=== PATIENT | female | born 1945 | race Caucasian/White ===

== ENCOUNTER 2016-10-27 19:43 | Inpatient (IN) | payer MEDICARE, MEDICAID ==
[~2016-10-27] VITALS: Ht 162.6 cm; Wt 46.8 kg
[2016-10-27] MEDS ORDERED: SODIUM CHLORIDE 0.9%, 500ML IVBOLUS ONE (20:00)
[2016-10-27] MEDS ORDERED: ONDANSETRON 2MG/ML, 2ML IVPush ONE (20:00)
[2016-10-27] MEDS ORDERED: morphine SULFATE 10 MG/ML, 1ML IVPush ONE (20:30)
[2016-10-27 20:38] LABS: HEMOGLOBIN 11.9 g/dL (11.7-16.4)
[2016-10-27] MEDS ORDERED: MORPHINE SULFATE 4 MG/ML, 1ML ONE (20:38)
[2016-10-27] MEDS ORDERED: ONDANSETRON 2MG/ML, 2ML ONE (20:38)
[2016-10-27 20:50] LABS: ASPARTATE AMINO TRANSFERASE 10 U/L (15-37); BLOOD UREA NITROGEN 86 mg/dL (7-18)
[2016-10-27] MEDS ORDERED: SODIUM CHLORIDE FLUSH 10ML SYR IVF ONE (21:00)
[2016-10-27] MEDS ORDERED: PIPERACILLIN/TAZO/PMX 3.375GM 50 ML ONE (22:29)
[2016-10-27] MEDS ORDERED: SODIUM CHLORIDE 0.9% 1,000 ML IV ONE (22:30)
[2016-10-27] MEDS ORDERED: METRONIDAZOLE PMX 500MG/100ML 100 ML IV ONE (22:30)
[2016-10-27] MEDS ORDERED: PIPERACILLIN/TAZO/PMX 3.375GM 50 ML IV ONE (22:30)
[2016-10-27] MEDS ORDERED: PIPERACILLIN/TAZO/PMX 3.375GM 50 ML IV SCH (23:00)
[2016-10-27] MEDS ORDERED: ACETAMINOPHEN 325 MG TABLET PO PRN (23:00)
[2016-10-28] MEDS: SODIUM CHLORIDE 0.9% 1,000 ML IV SCH ×4 (00:25→17:31)
[2016-10-28] MEDS: METRONIDAZOLE PMX 500MG/100ML 100 ML IV SCH ×2 (00:25→08:00)
[2016-10-28 00:37] VITALS: BP 143/71
[2016-10-28] MEDS: HEPARIN 5,000 UNITS/ML, 1ML SQ SCH ×3 (01:25→17:30)
[2016-10-28] MEDS: HYDROcodone/APAP 5/325 TABLET PO PRN ×2 (01:40→19:53)
[2016-10-28 02:13] VITALS: BP 123/57
[2016-10-28 05:52] LABS: HEMOGLOBIN 10.5 g/dL (11.7-16.4)
[2016-10-28 06:04] LABS: BLOOD UREA NITROGEN 83 mg/dL (7-18)
[2016-10-28 06:09] LABS: ASPARTATE AMINO TRANSFERASE 7 U/L (15-37)
[2016-10-28 07:58] VITALS: BP 119/61
[2016-10-28] MEDS ORDERED: DEXTROSE 50%, 50ML SYRINGE IVPush ONE (08:30)
[2016-10-28] MEDS ORDERED: PHARMACY MAY ADJ FOR RENAL FX MC PRN (08:30)
[2016-10-28] MEDS ORDERED: SODIUM CHLORIDE 0.9% 1,000 ML IV SCH ×2 (08:30)
[2016-10-28] MEDS: SODIUM BICARBONATE 8.4% 150 MEQ in DEXTROSE 5% 1,000 ML IV SCH ×2 (09:12→21:43)
[2016-10-28] MEDS: INSULIN REGULAR 100 UNITS/ML, 3ML VIAL IVPush SCH ×2 (09:13→11:00)
[2016-10-28] MEDS ORDERED: LIDOCAINE 1%, 20ML ONE ×2 (10:52→15:56)
[2016-10-28] MEDS ORDERED: MIDAZOLAM 1 MG/ML, 5ML ONE (11:16)
[2016-10-28] MEDS ORDERED: FENTANYL PF 100 MCG/2ML ONE ×2 (11:16→15:57)
[2016-10-28] MEDS ORDERED: NALOXONE 1 MG/ML, 2ML ONE (11:17)
[2016-10-28 11:50] LABS: BLOOD UREA NITROGEN 86 mg/dL (7-18)
[2016-10-28 12:45] VITALS: BP 104/48
[2016-10-28 12:48] LABS: CYTOLOGY BODY FLUID RECD INTO PATHOLOGY; CYTOLOGY BODY FLUID SOURCE OTHER - SEE COMMENT
[2016-10-28] MEDS: PIPERACILLIN/TAZO/PMX 2.25GM 50 ML IV SCH ×2 (15:36→23:16)
[2016-10-28 17:38] LABS: BLOOD UREA NITROGEN 74 mg/dL (7-18)
[2016-10-28 18:26] LABS: POTASSIUM,URINE RANDOM 9 mmol/L
[2016-10-28 19:43] VITALS: BP 127/54
[2016-10-29] MEDS: HYDROcodone/APAP 5/325 TABLET PO PRN ×4 (00:38→19:57)
[2016-10-29 01:16] VITALS: BP 130/60
[2016-10-29] MEDS: SODIUM CHLORIDE 0.9% 1,000 ML IV SCH ×2 (02:29→08:17)
[2016-10-29] MEDS: HEPARIN 5,000 UNITS/ML, 1ML SQ SCH ×2 (02:56→07:56)
[2016-10-29 07:03] VITALS: BP 137/67
[2016-10-29] MEDS: SODIUM BICARBONATE 8.4% 150 MEQ in DEXTROSE 5% 1,000 ML IV SCH (08:18)
[2016-10-29] MEDS: PIPERACILLIN/TAZO/PMX 2.25GM 50 ML IV SCH ×3 (08:18→21:04)
[2016-10-29] MEDS ORDERED: SODIUM CHLORIDE 0.9% 1,000 ML IV ONE (09:30)
[2016-10-29 10:22] LABS: HEMOGLOBIN 9.3 g/dL (11.7-16.4)
[2016-10-29 10:29] LABS: BLOOD UREA NITROGEN 20 mg/dL (7-18)
[2016-10-29 10:33] LABS: ASPARTATE AMINO TRANSFERASE 11 U/L (15-37)
[2016-10-29 12:10] LABS: PTH INTACT INTERPRETATION ** Comment **
[2016-10-29 12:26] VITALS: BP 139/60
[2016-10-29 12:28] LABS: BLOOD UREA NITROGEN 18 mg/dL (7-18)
[2016-10-29 12:37] LABS: PARATHYROID HORMONE INTACT 90.1 pg/mL (14-72)
[2016-10-29] MEDS ORDERED: ERGOCALCIFEROL 50,000 UNIT CAPSULE PO SCH (15:00)
[2016-10-29] MEDS: SODIUM CHLORIDE 0.45% 1,000 ML IV SCH (17:25)
[2016-10-29 19:52] VITALS: BP 151/73
[2016-10-30] MEDS: HYDROcodone/APAP 5/325 TABLET PO PRN ×5 (02:10→22:34)
[2016-10-30 02:13] VITALS: BP 155/75
[2016-10-30] MEDS: PIPERACILLIN/TAZO/PMX 2.25GM 50 ML IV SCH ×2 (03:24→09:26)
[2016-10-30] MEDS: SODIUM CHLORIDE 0.45% 1,000 ML IV SCH ×2 (04:29→18:37)
[2016-10-30 06:16] LABS: HEMOGLOBIN 8.8 g/dL (11.7-16.4)
[2016-10-30 06:27] LABS: ASPARTATE AMINO TRANSFERASE 10 U/L (15-37); BLOOD UREA NITROGEN 10 mg/dL (7-18)
[2016-10-30 07:07] VITALS: BP 155/71
[2016-10-30] MEDS ORDERED: POTASSIUM PHOSPHATE 44 MEQ in SODIUM CHLORIDE 0.9% 500 ML IV ONE (11:30)
[2016-10-30] MEDS ORDERED: POTASSIUM PHOS 4.4 MEQ/ML IV SCH (11:30)
[2016-10-30] MEDS ORDERED: MAGNESIUM SULFATE PMX 4GM/100M 100 ML IV ONE (11:30)
[2016-10-30] MEDS: CEFTRIAXONE PMX 1GM/50ML 50 ML IV SCH (11:35)
[2016-10-30 13:19] VITALS: BP 133/65
[2016-10-30] MEDS ORDERED: BISACODYL 10 MG SUPP PR PRN (18:00)
[2016-10-30 19:28] VITALS: BP 115/66
[2016-10-30] MEDS: SENNA/DOCUSATE TABLET PO SCH (20:37)
[2016-10-31] MEDS: HYDROcodone/APAP 5/325 TABLET PO PRN ×5 (02:24→20:07)
[2016-10-31 02:39] VITALS: BP 147/77
[2016-10-31] MEDS: SODIUM CHLORIDE 0.45% 1,000 ML IV SCH ×2 (05:20→15:58)
[2016-10-31 05:42] LABS: HEMOGLOBIN 10.5 g/dL (11.7-16.4)
[2016-10-31 06:08] LABS: ASPARTATE AMINO TRANSFERASE 15 U/L (15-37); BLOOD UREA NITROGEN 11 mg/dL (7-18)
[2016-10-31 07:34] VITALS: BP 150/81
[2016-10-31] MEDS: SENNA/DOCUSATE TABLET PO SCH ×2 (07:47→20:07)
[2016-10-31] MEDS: CEFTRIAXONE PMX 1GM/50ML 50 ML IV SCH (11:52)
[2016-10-31 14:10] VITALS: BP 145/73
[2016-11-01] MEDS: HYDROcodone/APAP 5/325 TABLET PO PRN ×6 (00:39→21:43)
[2016-11-01] MEDS: SODIUM CHLORIDE 0.45% 1,000 ML IV SCH ×3 (00:39→23:19)
[2016-11-01 01:16] VITALS: BP 163/79
[2016-11-01 04:46] LABS: HEMOGLOBIN 11.4 g/dL (11.7-16.4)
[2016-11-01 04:55] LABS: BLOOD UREA NITROGEN 15 mg/dL (7-18)
[2016-11-01 04:58] LABS: ASPARTATE AMINO TRANSFERASE 40 U/L (15-37)
[2016-11-01] MEDS: SENNA/DOCUSATE TABLET PO SCH ×2 (09:02→21:00)
[2016-11-01 09:08] VITALS: BP 162/86
[2016-11-01] MEDS: CEFTRIAXONE PMX 1GM/50ML 50 ML IV SCH (11:52)
[2016-11-01 16:37] VITALS: BP 141/71
[2016-11-01 19:33] VITALS: BP 161/76
[2016-11-02] MEDS: HYDROcodone/APAP 5/325 TABLET PO PRN ×5 (02:23→20:09)
[2016-11-02 03:07] VITALS: BP 157/85
[2016-11-02 05:40] LABS: HEMOGLOBIN 11.4 g/dL (11.7-16.4)
[2016-11-02 05:54] LABS: BLOOD UREA NITROGEN 17 mg/dL (7-18)
[2016-11-02 05:58] LABS: ASPARTATE AMINO TRANSFERASE 55 U/L (15-37)
[2016-11-02 07:10] VITALS: BP 125/75
[2016-11-02] MEDS: SENNA/DOCUSATE TABLET PO SCH ×2 (08:54→20:09)
[2016-11-02] MEDS: SODIUM CHLORIDE 0.45% 1,000 ML IV SCH ×2 (09:08→15:00)
[2016-11-02] MEDS: CEFTRIAXONE PMX 1GM/50ML 50 ML IV SCH (11:34)
[2016-11-02] MEDS ORDERED: LIDOCAINE 1%, 20ML ONE (13:04)
[2016-11-02] MEDS ORDERED: MIDAZOLAM 1 MG/ML, 5ML ONE (13:09)
[2016-11-02] MEDS ORDERED: FENTANYL PF 100 MCG/2ML ONE (13:10)
[2016-11-02 14:35] VITALS: BP 123/68
[2016-11-02 19:52] VITALS: BP 172/91
[2016-11-03] MEDS: SODIUM CHLORIDE 0.45% 1,000 ML IV SCH ×3 (00:46→18:06)
[2016-11-03] MEDS: HYDROcodone/APAP 5/325 TABLET PO PRN ×6 (00:46→22:04)
[2016-11-03 00:54] VITALS: BP 118/68
[2016-11-03 04:15] VITALS: BP 134/68
[2016-11-03 06:10] LABS: HEMOGLOBIN 10.1 g/dL (11.7-16.4)
[2016-11-03 06:40] LABS: ASPARTATE AMINO TRANSFERASE 40 U/L (15-37); BLOOD UREA NITROGEN 17 mg/dL (7-18)
[2016-11-03 06:56] VITALS: BP 117/70
[2016-11-03] MEDS: SENNA/DOCUSATE TABLET PO SCH ×2 (09:34→20:49)
[2016-11-03] MEDS: CEFTRIAXONE PMX 1GM/50ML 50 ML IV SCH (11:38)
[2016-11-03 14:11] VITALS: BP 141/77
[2016-11-03 19:14] VITALS: BP 143/72
[2016-11-04 01:37] VITALS: BP 130/72
[2016-11-04] MEDS: HYDROcodone/APAP 5/325 TABLET PO PRN ×5 (02:11→22:16)
[2016-11-04 05:01] LABS: HEMOGLOBIN 10.4 g/dL (11.7-16.4)
[2016-11-04 05:15] LABS: BLOOD UREA NITROGEN 17 mg/dL (7-18)
[2016-11-04 05:18] LABS: ASPARTATE AMINO TRANSFERASE 23 U/L (15-37)
[2016-11-04 07:30] VITALS: BP 113/60
[2016-11-04] MEDS: SENNA/DOCUSATE TABLET PO SCH ×2 (09:38→21:00)
[2016-11-04] MEDS: CEFTRIAXONE PMX 1GM/50ML 50 ML IV SCH (11:04)
[2016-11-04 13:05] VITALS: BP 142/71
[2016-11-04 20:04] VITALS: BP 152/76
[2016-11-04] MEDS: SODIUM CHLORIDE 0.45% 1,000 ML IV SCH (21:25)
[2016-11-04] MEDS ORDERED: OMNIPAQUE 350 MG/ML, 75ML BOTTLE ONE (23:14)
[2016-11-05 02:01] VITALS: BP 139/79
[2016-11-05] MEDS: HYDROcodone/APAP 5/325 TABLET PO PRN ×3 (02:25→10:25)
[2016-11-05 05:25] LABS: HEMOGLOBIN 11.1 g/dL (11.7-16.4)
[2016-11-05 05:37] LABS: ASPARTATE AMINO TRANSFERASE 23 U/L (15-37); BLOOD UREA NITROGEN 24 mg/dL (7-18)
[2016-11-05 07:24] VITALS: BP 117/65
[2016-11-05] MEDS: SODIUM CHLORIDE 0.45% 1,000 ML IV SCH (07:30)
[2016-11-05] MEDS ORDERED: ACET325T14 PO (10:18)
[2016-11-05] MEDS ORDERED: ERGO500017 PO (10:18)
[2016-11-05] MEDS: SENNA/DOCUSATE TABLET PO SCH (10:25)
[2016-11-05] MEDS: CEFTRIAXONE PMX 1GM/50ML 50 ML IV SCH (11:14)
[2016-11-05 12:20] VITALS: BP 139/76
[2016-11-28] MEDS ORDERED: SODIUM CHLORIDE 0.9% 1,000 ML IV ONE (09:30)
== END 2016-11-05 13:45 | disposition home health service (06) | DRG 371 ==
LOC: ED 22:00 → EDIP 22:16 → 3NE 23:20 → 4EST 10-31 20:04 → 4NOR 11-02 14:34 → DCLOUNGE 11-05 13:45
PROVIDERS: ADMIT Internal Medicine; ATTEND Internal Medicine
PROC: 0T9B70Z Drainage of Bladder with Drainage Device, Via Natural or Artificial Opening (ICD-10-PCS; 2016-10-27)
PROC: BT111ZZ Fluoroscopy of Right Kidney using Low Osmolar Contrast (ICD-10-PCS; 2016-10-28)
PROC: 0T9430Z Drainage of Left Kidney Pelvis with Drainage Device, Percutaneous Approach (ICD-10-PCS; 2016-10-28)
PROC: 0W9G3ZZ Drainage of Peritoneal Cavity, Percutaneous Approach (ICD-10-PCS; 2016-10-28)
PROC: 0T9330Z Drainage of Right Kidney Pelvis with Drainage Device, Percutaneous Approach (ICD-10-PCS; 2016-10-28)
PROC: 0T784DZ Dilation of Bilateral Ureters with Intraluminal Device, Percutaneous Endoscopic Approach (ICD-10-PCS; principal; 2016-11-02)
DX: K65.1 Peritoneal abscess (principal); E43 Unspecified severe protein-calorie malnutrition; N17.0 Acute kidney failure with tubular necrosis; N13.39 Other hydronephrosis; E87.1 Hypo-osmolality and hyponatremia; J90 Pleural effusion, not elsewhere classified; E87.2 Acidosis; Z68.1 Body mass index [BMI] 19.9 or less, adult; N13.8 Other obstructive and reflux uropathy; K80.20 Calculus of gallbladder without cholecystitis without obstruction; D25.9 Leiomyoma of uterus, unspecified; G89.29 Other chronic pain; D64.9 Anemia, unspecified; E83.51 Hypocalcemia; M41.9 Scoliosis, unspecified; E83.39 Other disorders of phosphorus metabolism; E87.5 Hyperkalemia; E83.42 Hypomagnesemia; K59.00 Constipation, unspecified; M25.559 Pain in unspecified hip; R19.00 Intra-abdominal and pelvic swelling, mass and lump, unspecified site; E83.41 Hypermagnesemia; H54.7 Unspecified visual loss; E86.0 Dehydration; Z80.3 Family history of malignant neoplasm of breast; Z80.0 Family history of malignant neoplasm of digestive organs; Z93.6 Other artificial openings of urinary tract status
CPT/HCPCS: 36415; 49405; 50432; 50693; 71010; 71260; 74176; 75989; 76700; 76856; 76942; 80048; 80053; 81001; 81050; 82247; 82248; 82306; 82310; 82436; 82570; 82728; 83540; 83550; 83605; 83690; 83735; 83970; 84100; 84132; 84133; 84145; 84300; 84311; 84550; 85025; 85610; 87040; 87070; 87075; 87086; 87205; 88112; 88305; 93005; 96361; 96374; 99156; 99157; C1894; J0696; J1644; J1815; J2250; J2405; J2543; J3010; J3490; J7070; Q9967; C1729; C1751; C1769; C2625; J2270; J2310; J3475; J7030; J7040

== ENCOUNTER 2017-01-04 16:55 | Inpatient (IN) | payer MEDICARE, MEDICAID ==
[~2017-01-04] VITALS: Ht 162.6 cm; Wt 47.6 kg
[~2017-01-04 16:55] MED LIST: ACET325T14 PO; ERGO500017 PO
[2017-01-04] MEDS ORDERED: SODIUM CHLORIDE FLUSH 10ML SYR IVF ONE (17:30)
[2017-01-04] MEDS ORDERED: ONDANSETRON 2MG/ML, 2ML IVPush ONE (17:30)
[2017-01-04] MEDS ORDERED: SODIUM CHLORIDE 0.9% 1,000ML IVBOLUS ONE (17:30)
[2017-01-04 18:02] LABS: BLOOD UREA NITROGEN 72 mg/dL (7-18)
[2017-01-04] MEDS ORDERED: MORPHINE SULFATE 4 MG/ML, 1ML ONE ×2 (18:07→19:08)
[2017-01-04] MEDS ORDERED: ONDANSETRON 2MG/ML, 2ML ONE (18:08)
[2017-01-04] MEDS: MORPHINE SULFATE 4 MG/ML, 1ML IVPush PRN ×2 (18:12→19:15)
[2017-01-04] MEDS: SODIUM CHLORIDE 0.9% 1,000 ML IV ONE ×2 (18:57→19:15)
[2017-01-04] MEDS ORDERED: CEFTRIAXONE 1,000 MG in SODIUM CHLORIDE 0.9% 50 ML IVPB ONE (19:00)
[2017-01-04] MEDS ORDERED: SODIUM CHLORIDE 0.9%, 500ML IVBOLUS ONE (19:00)
[2017-01-04] MEDS ORDERED: CEFTRIAXONE PMX 1GM/50ML 50 ML ONE (19:09)
[2017-01-04] MEDS ORDERED: DOCUSATE 100 MG CAPSULE PO PRN (23:00)
[2017-01-04] MEDS ORDERED: HEPARIN 5,000 UNITS/ML, 1ML SQ SCH (23:00)
[2017-01-04] MEDS ORDERED: ACETAMINOPHEN 325 MG TABLET PO PRN (23:00)
[2017-01-04] MEDS ORDERED: TEMAZEPAM 15 MG CAPSULE PO PRN (23:00)
[2017-01-04 23:48] VITALS: BP 132/77
[2017-01-04] MEDS: OXYcodone/APAP 5/325MG TABLET PO PRN (23:53)
[2017-01-04] MEDS: ERGOCALCIFEROL 50,000 UNIT CAPSULE PO SCH (23:53)
[2017-01-04] MEDS: D5%-0.45% NACL 1,000 ML IV SCH (23:53)
[2017-01-05 01:18] VITALS: BP 126/72
[2017-01-05] MEDS: OXYcodone/APAP 5/325MG TABLET PO PRN ×6 (04:21→23:09)
[2017-01-05 05:53] LABS: BLOOD UREA NITROGEN 59 mg/dL (7-18)
[2017-01-05 07:25] VITALS: BP 154/72
[2017-01-05] MEDS: D5%-0.45% NACL 1,000 ML IV SCH (08:49)
[2017-01-05 12:35] VITALS: BP 154/63
[2017-01-05] MEDS: LACTOBACILLUS CHEW TABLET PO SCH ×3 (13:02→19:44)
[2017-01-05] MEDS: HEPARIN 5,000 UNITS/ML, 1ML SQ SCH ×2 (13:02→21:54)
[2017-01-05 18:28] VITALS: BP 141/61
[2017-01-05] MEDS: CEFTRIAXONE PMX 1GM/50ML 50 ML IV SCH (19:43)
[2017-01-06 03:10] VITALS: BP 51/73
[2017-01-06] MEDS: D5%-0.45% NACL 1,000 ML IV SCH ×3 (03:12→23:41)
[2017-01-06] MEDS: OXYcodone/APAP 5/325MG TABLET PO PRN ×4 (03:19→20:31)
[2017-01-06] MEDS: HEPARIN 5,000 UNITS/ML, 1ML SQ SCH ×3 (05:40→22:00)
[2017-01-06] MEDS: LACTOBACILLUS CHEW TABLET PO SCH ×4 (05:40→20:30)
[2017-01-06 06:15] LABS: BLOOD UREA NITROGEN 50 mg/dL (7-18)
[2017-01-06 08:30] VITALS: BP 163/77
[2017-01-06 13:31] VITALS: BP 164/82
[2017-01-06] MEDS: METOPROLOL TARTRATE 25 MG TABLET PO SCH (17:57)
[2017-01-06 20:12] VITALS: BP 158/78
[2017-01-06] MEDS: CEFTRIAXONE PMX 1GM/50ML 50 ML IV SCH (20:30)
[2017-01-07] MEDS: OXYcodone/APAP 5/325MG TABLET PO PRN ×6 (00:05→20:08)
[2017-01-07 01:21] VITALS: BP 159/81
[2017-01-07] MEDS: METOPROLOL TARTRATE 25 MG TABLET PO SCH ×2 (05:52→18:57)
[2017-01-07] MEDS: HEPARIN 5,000 UNITS/ML, 1ML SQ SCH ×2 (05:52→16:05)
[2017-01-07] MEDS: LACTOBACILLUS CHEW TABLET PO SCH ×4 (05:52→20:08)
[2017-01-07 06:09] LABS: BLOOD UREA NITROGEN 55 mg/dL (7-18)
[2017-01-07 07:45] VITALS: BP 105/55
[2017-01-07] MEDS ORDERED: SODIUM POLYSTYRENE SULFONATE ORAL SUSP PO ONE (09:30)
[2017-01-07] MEDS: ONDANSETRON ODT 4 MG PO PRN (11:03)
[2017-01-07 13:30] VITALS: BP 135/62
[2017-01-07] MEDS: D5%-0.45% NACL 1,000 ML IV SCH ×2 (16:06→18:46)
[2017-01-07 18:35] VITALS: BP 137/75
[2017-01-07] MEDS: CEFTRIAXONE PMX 1GM/50ML 50 ML IV SCH (20:08)
[2017-01-07] MEDS ORDERED: D5%-0.45% NACL 1,000 ML IV SCH (22:56)
[2017-01-08] MEDS: D5%-0.45% NACL 1,000 ML IV SCH ×3 (00:37→12:39)
[2017-01-08] MEDS: HEPARIN 5,000 UNITS/ML, 1ML SQ SCH ×4 (01:01→22:32)
[2017-01-08] MEDS: OXYcodone/APAP 5/325MG TABLET PO PRN ×5 (01:01→20:13)
[2017-01-08 02:03] VITALS: BP 124/73
[2017-01-08 03:59] LABS: BLOOD UREA NITROGEN 62 mg/dL (7-18)
[2017-01-08 05:24] VITALS: BP 146/68
[2017-01-08] MEDS: METOPROLOL TARTRATE 25 MG TABLET PO SCH ×2 (05:26→18:23)
[2017-01-08] MEDS: LACTOBACILLUS CHEW TABLET PO SCH ×4 (05:27→20:13)
[2017-01-08] MEDS: ONDANSETRON ODT 4 MG PO PRN ×5 (05:32→23:23)
[2017-01-08 07:15] VITALS: BP 148/65
[2017-01-08 13:30] VITALS: BP 200/82
[2017-01-08] MEDS ORDERED: LABETALOL 5MG/ML, 20ML IVPush PRN (14:00)
[2017-01-08] MEDS ORDERED: hydrALAzine 20 MG/ML, 1ML IV PRN (15:00)
[2017-01-08] MEDS: morphine SULFATE 10 MG/ML, 1ML IVPush PRN ×3 (15:21→22:32)
[2017-01-08] MEDS: CEFTRIAXONE PMX 1GM/50ML 50 ML IV SCH (18:24)
[2017-01-08 18:46] VITALS: BP 154/89
[2017-01-09] MEDS: morphine SULFATE 10 MG/ML, 1ML IVPush PRN ×3 (01:30→22:20)
[2017-01-09 02:40] VITALS: BP 151/77
[2017-01-09] MEDS: HEPARIN 5,000 UNITS/ML, 1ML SQ SCH ×3 (04:25→22:00)
[2017-01-09] MEDS: LACTOBACILLUS CHEW TABLET PO SCH ×4 (05:23→20:03)
[2017-01-09] MEDS: ONDANSETRON ODT 4 MG PO PRN (05:29)
[2017-01-09] MEDS: METOPROLOL TARTRATE 25 MG TABLET PO SCH ×2 (05:29→17:04)
[2017-01-09 05:53] LABS: BLOOD UREA NITROGEN 71 mg/dL (7-18)
[2017-01-09] MEDS: D5%-0.45% NACL 1,000 ML IV SCH ×2 (06:15→18:31)
[2017-01-09 07:25] VITALS: BP 153/66
[2017-01-09] MEDS ORDERED: SODIUM POLYSTYRENE SULFONATE ORAL SUSP PO ONE (09:00)
[2017-01-09] MEDS ORDERED: LIDOCAINE 2%, 20ML ONE ×2 (10:09)
[2017-01-09] MEDS ORDERED: MIDAZOLAM 1 MG/ML, 5ML ONE (10:19)
[2017-01-09] MEDS ORDERED: FLUMAZENIL 0.1 MG/1 ML, 5ML ONE (10:19)
[2017-01-09] MEDS ORDERED: FENTANYL PF 100 MCG/2ML ONE (10:19)
[2017-01-09] MEDS ORDERED: NALOXONE 1 MG/ML, 2ML ONE (10:19)
[2017-01-09] MEDS ORDERED: PHARMACY MAY ADJ FOR RENAL FX MC PRN (11:00)
[2017-01-09] MEDS ORDERED: VISIPAQUE 270 MG/ML, 50ML BOTTLE ONE (11:24)
[2017-01-09] MEDS: METRONIDAZOLE PMX 500MG/100ML 100 ML IV SCH ×2 (11:55→20:03)
[2017-01-09] MEDS: VANCOMYCIN 50 MG/ML ORAL SUSP PO SCH ×2 (13:13→18:33)
[2017-01-09 14:35] VITALS: BP 124/59
[2017-01-09] MEDS: OXYcodone/APAP 5/325MG TABLET PO PRN (14:38)
[2017-01-09 15:07] LABS: BLOOD UREA NITROGEN 65 mg/dL (7-18)
[2017-01-09] MEDS: CEFTRIAXONE PMX 1GM/50ML 50 ML IV SCH (18:31)
[2017-01-09 19:33] VITALS: BP 147/82
[2017-01-10] MEDS: VANCOMYCIN 50 MG/ML ORAL SUSP PO SCH ×4 (00:36→18:44)
[2017-01-10 01:20] VITALS: BP 148/71
[2017-01-10] MEDS: morphine SULFATE 10 MG/ML, 1ML IVPush PRN ×4 (02:02→12:33)
[2017-01-10] MEDS: D5%-0.45% NACL 1,000 ML IV SCH ×2 (03:49→12:30)
[2017-01-10] MEDS: METRONIDAZOLE PMX 500MG/100ML 100 ML IV SCH ×3 (03:53→21:36)
[2017-01-10 05:40] LABS: BLOOD UREA NITROGEN 40 mg/dL (7-18)
[2017-01-10] MEDS: LACTOBACILLUS CHEW TABLET PO SCH ×4 (05:50→23:15)
[2017-01-10] MEDS: HEPARIN 5,000 UNITS/ML, 1ML SQ SCH ×3 (05:50→22:00)
[2017-01-10] MEDS: METOPROLOL TARTRATE 25 MG TABLET PO SCH ×2 (05:59→18:43)
[2017-01-10] MEDS ORDERED: INSULIN ASPART 100 UNITS/ML, PEN SQ-INSULIN SCH (07:00)
[2017-01-10 08:30] VITALS: BP 154/63
[2017-01-10 13:44] VITALS: BP 119/56
[2017-01-10] MEDS ORDERED: FENTANYL PF 100 MCG/2ML ONE (13:46)
[2017-01-10] MEDS ORDERED: MIDAZOLAM 1 MG/ML, 2ML ONE (13:46)
[2017-01-10] MEDS ORDERED: PROPOFOL 10 MG/ML, 20ML ONE (14:56)
[2017-01-10] MEDS ORDERED: ACETAMINOPHEN 325 MG TABLET PO PRN (15:00)
[2017-01-10] MEDS ORDERED: hydrALAzine 20 MG/ML, 1ML IV PRN (15:00)
[2017-01-10] MEDS ORDERED: MEPERIDINE/PF 25MG/0.5ML IVPush PRN (15:00)
[2017-01-10] MEDS ORDERED: ONDANSETRON 2MG/ML, 2ML IVPush PRN (15:00)
[2017-01-10] MEDS ORDERED: FENTANYL PF 100 MCG/2ML IV PRN (15:00)
[2017-01-10] MEDS ORDERED: OXYcodone 5 MG/5 ML ORAL.SOL UDC PO PRN (15:00)
[2017-01-10] MEDS ORDERED: LABETALOL 5MG/ML, 20ML IV PRN (15:00)
[2017-01-10] MEDS ORDERED: PROMETHAZINE 25 MG/ML, 1ML IV PRN (15:00)
[2017-01-10] MEDS ORDERED: HYDROmorphone 1 MG/ML, 1ML IV PRN (15:00)
[2017-01-10] MEDS: OXYcodone/APAP 5/325MG TABLET PO PRN ×2 (18:43→23:46)
[2017-01-10] MEDS: CEFTRIAXONE PMX 1GM/50ML 50 ML IV SCH (19:55)
[2017-01-10 20:10] VITALS: BP 100/47
[2017-01-10 21:49] VITALS: BP 106/46
[2017-01-11 01:13] VITALS: BP 106/51
[2017-01-11] MEDS: VANCOMYCIN 50 MG/ML ORAL SUSP PO SCH ×4 (01:41→21:55)
[2017-01-11] MEDS: D5%-0.45% NACL 1,000 ML IV SCH ×3 (02:41→12:30)
[2017-01-11] MEDS: METRONIDAZOLE PMX 500MG/100ML 100 ML IV SCH ×2 (04:15→13:31)
[2017-01-11] MEDS: OXYcodone/APAP 5/325MG TABLET PO PRN ×4 (04:15→21:59)
[2017-01-11 05:27] LABS: BLOOD UREA NITROGEN 20 mg/dL (7-18)
[2017-01-11 05:30] VITALS: BP 132/61
[2017-01-11] MEDS: LACTOBACILLUS CHEW TABLET PO SCH ×4 (05:35→19:45)
[2017-01-11] MEDS: METOPROLOL TARTRATE 25 MG TABLET PO SCH ×2 (05:35→18:00)
[2017-01-11] MEDS: HEPARIN 5,000 UNITS/ML, 1ML SQ SCH ×3 (05:36→21:55)
[2017-01-11 07:37] VITALS: BP 110/54
[2017-01-11] MEDS ORDERED: POTASSIUM CHLORIDE 20 MEQ TAB.ER.PRT PO ONE (09:00)
[2017-01-11 14:21] VITALS: BP 109/56
[2017-01-11 19:38] VITALS: BP 134/62
[2017-01-11] MEDS: CEFTRIAXONE PMX 1GM/50ML 50 ML IV SCH (19:45)
[2017-01-11] MEDS: metroNIDAZOLE 500 MG TABLET PO SCH (22:50)
[2017-01-12] MEDS: ERGOCALCIFEROL 50,000 UNIT CAPSULE PO SCH (00:29)
[2017-01-12 01:35] VITALS: BP 125/57
[2017-01-12] MEDS: D5%-0.45% NACL 1,000 ML IV SCH ×2 (03:55→15:12)
[2017-01-12] MEDS: OXYcodone/APAP 5/325MG TABLET PO PRN (04:03)
[2017-01-12] MEDS: VANCOMYCIN 50 MG/ML ORAL SUSP PO SCH ×4 (04:03→22:00)
[2017-01-12 05:19] LABS: BLOOD UREA NITROGEN 14 mg/dL (7-18)
[2017-01-12] MEDS: metroNIDAZOLE 500 MG TABLET PO SCH ×3 (06:44→22:00)
[2017-01-12] MEDS: METOPROLOL TARTRATE 25 MG TABLET PO SCH ×2 (06:44→17:39)
[2017-01-12] MEDS: LACTOBACILLUS CHEW TABLET PO SCH ×4 (06:44→22:00)
[2017-01-12] MEDS: HEPARIN 5,000 UNITS/ML, 1ML SQ SCH ×3 (06:45→23:41)
[2017-01-12 07:04] VITALS: BP 142/70
[2017-01-12] MEDS ORDERED: POTASSIUM CHLORIDE 40 MEQ in SODIUM CHLORIDE 0.9% 500 ML IV ONE (07:30)
[2017-01-12] MEDS ORDERED: POTASSIUM CHLORIDE 20 MEQ TAB.ER.PRT PO SCH (08:00)
[2017-01-12] MEDS: morphine SULFATE 10 MG/ML, 1ML IVPush PRN ×2 (10:20→15:12)
[2017-01-12 13:40] VITALS: BP 128/66
[2017-01-12 17:25] VITALS: BP 159/82
[2017-01-12] MEDS ORDERED: BUPIVACAINE/PF-EPI 0.5% 1:200K ONE (18:03)
[2017-01-12] MEDS ORDERED: FENTANYL PF 250 MCG/5ML ONE (18:11)
[2017-01-12] MEDS ORDERED: MIDAZOLAM 1 MG/ML, 2ML ONE (18:11)
[2017-01-12] MEDS ORDERED: HYDROmorphone 1 MG/ML, 1ML IV PRN (20:00)
[2017-01-12] MEDS ORDERED: MEPERIDINE/PF 25MG/0.5ML IVPush PRN (20:00)
[2017-01-12] MEDS ORDERED: LABETALOL 5MG/ML, 20ML IV PRN (20:00)
[2017-01-12] MEDS ORDERED: hydrALAzine 20 MG/ML, 1ML IV PRN (20:00)
[2017-01-12] MEDS ORDERED: ONDANSETRON 2MG/ML, 2ML IVPush PRN (20:00)
[2017-01-12] MEDS ORDERED: FENTANYL PF 100 MCG/2ML IV PRN (20:00)
[2017-01-12] MEDS ORDERED: HYDROmorphone 1 MG/ML, 1ML ONE (20:07)
[2017-01-12 21:45] VITALS: BP 105/51
[2017-01-12] MEDS ORDERED: MORPHINE SULFATE 4 MG/ML, 1ML IVPush PRN (23:30)
[2017-01-12] MEDS: FAMOTIDINE 20 MG/2 ML IVPush SCH (23:41)
[2017-01-12] MEDS: CEFTRIAXONE PMX 1GM/50ML 50 ML IV SCH (23:41)
[2017-01-13] MEDS: D5%-0.45NACL+KCL 20MEQ 1,000 ML IV SCH ×4 (00:03→21:07)
[2017-01-13 01:46] VITALS: BP 101/41
[2017-01-13] MEDS: VANCOMYCIN 50 MG/ML ORAL SUSP PO SCH ×4 (03:30→21:07)
[2017-01-13 05:09] LABS: BLOOD UREA NITROGEN 11 mg/dL (7-18)
[2017-01-13 05:56] LABS: DIFF TOTAL CELLS COUNTED 100 CELL DIFF
[2017-01-13] MEDS: METOPROLOL TARTRATE 25 MG TABLET PO SCH ×2 (06:00→18:00)
[2017-01-13 06:01] LABS: VERIFY COUNTS? YES
[2017-01-13] MEDS: metroNIDAZOLE 500 MG TABLET PO SCH (06:05)
[2017-01-13] MEDS: LACTOBACILLUS CHEW TABLET PO SCH ×4 (06:05→21:07)
[2017-01-13] MEDS: HEPARIN 5,000 UNITS/ML, 1ML SQ SCH ×3 (06:06→21:08)
[2017-01-13 06:52] VITALS: BP 102/51
[2017-01-13] MEDS ORDERED: POTASSIUM CHLORIDE 40 MEQ in SODIUM CHLORIDE 0.9% 500 ML IV ONE (08:00)
[2017-01-13] MEDS ORDERED: MAGNESIUM SULFATE PMX 4GM/100M 100 ML IV ONE (08:00)
[2017-01-13] MEDS: METRONIDAZOLE PMX 500MG/100ML 100 ML IV SCH ×2 (08:21→15:35)
[2017-01-13] MEDS ORDERED: NEOSTIGMINE 1 MG/ML, 10ML ONE (08:46)
[2017-01-13] MEDS ORDERED: GLYCOPYRROLATE 0.2MG/1ML ONE (08:46)
[2017-01-13] MEDS ORDERED: ROCURONIUM 10 MG/ML ONE (08:46)
[2017-01-13] MEDS ORDERED: CALCIUM CHLORIDE 10%, 10ML SYR ONE (08:46)
[2017-01-13] MEDS ORDERED: KETAMINE 10 MG/ML, 20ML ONE (08:46)
[2017-01-13] MEDS ORDERED: CEFOTETAN 2 GM ONE (08:46)
[2017-01-13] MEDS ORDERED: ONDANSETRON 2MG/ML, 2ML ONE (08:46)
[2017-01-13] MEDS ORDERED: PROPOFOL 10 MG/ML, 20ML ONE (08:46)
[2017-01-13 14:17] VITALS: BP 103/49
[2017-01-13 18:49] VITALS: BP 106/54
[2017-01-14] MEDS: FAMOTIDINE 20 MG/2 ML IVPush SCH (00:20)
[2017-01-14] MEDS: METRONIDAZOLE PMX 500MG/100ML 100 ML IV SCH ×3 (00:20→16:44)
[2017-01-14 02:58] VITALS: BP 122/55
[2017-01-14] MEDS: D5%-0.45NACL+KCL 20MEQ 1,000 ML IV SCH (04:48)
[2017-01-14] MEDS: VANCOMYCIN 50 MG/ML ORAL SUSP PO SCH ×3 (04:48→16:44)
[2017-01-14] MEDS: LACTOBACILLUS CHEW TABLET PO SCH ×4 (05:03→22:17)
[2017-01-14] MEDS: METOPROLOL TARTRATE 25 MG TABLET PO SCH (05:03)
[2017-01-14] MEDS: HEPARIN 5,000 UNITS/ML, 1ML SQ SCH (05:03)
[2017-01-14 05:27] LABS: ASPARTATE AMINO TRANSFERASE 14 U/L (15-37); BLOOD UREA NITROGEN 14 mg/dL (7-18)
[2017-01-14 06:05] LABS: DIFF TOTAL CELLS COUNTED 100 CELL DIFF
[2017-01-14 06:07] LABS: VERIFY COUNTS? YES
[2017-01-14] MEDS ORDERED: MAGNESIUM SULFATE PMX 2GM/50ML 50 ML IV ONE (07:30)
[2017-01-14 08:06] VITALS: BP 108/58
[2017-01-14] MEDS: ENOXAPARIN 40 MG/0.4 ML SQ SCH (09:20)
[2017-01-14] MEDS: MAGNESIUM OXIDE 400 MG TABLET PO SCH (09:20)
[2017-01-14] MEDS: POTASSIUM ACID PHOSPHATE 500 MG TABLET.SOL PO SCH ×3 (09:20→18:22)
[2017-01-14 12:11] VITALS: BP 127/63
[2017-01-14] MEDS: OXYcodone/APAP 5/325MG TABLET PO PRN (13:30)
[2017-01-14 19:22] VITALS: BP 130/72
[2017-01-15] VITALS (7 sets, daily range): BP systolic 124–145; BP diastolic 62–73
[2017-01-15] MEDS: METRONIDAZOLE PMX 500MG/100ML 100 ML IV SCH ×3 (00:48→20:50)
[2017-01-15] MEDS: VANCOMYCIN 50 MG/ML ORAL SUSP PO SCH ×4 (00:48→18:21)
[2017-01-15] MEDS: POTASSIUM ACID PHOSPHATE 500 MG TABLET.SOL PO SCH (00:48)
[2017-01-15 04:43] LABS: BLOOD UREA NITROGEN 10 mg/dL (7-18)
[2017-01-15] MEDS: LACTOBACILLUS CHEW TABLET PO SCH ×4 (06:21→20:51)
[2017-01-15] MEDS ORDERED: MAGNESIUM SULFATE PMX 2GM/50ML 50 ML IV ONE (10:00)
[2017-01-15] MEDS ORDERED: POTASSIUM CHLORIDE 40 MEQ in SODIUM CHLORIDE 0.9% 500 ML IV ONE (11:00)
[2017-01-15] MEDS: MAGNESIUM OXIDE 400 MG TABLET PO SCH (11:08)
[2017-01-15] MEDS: ENOXAPARIN 40 MG/0.4 ML SQ SCH (11:08)
[2017-01-15] MEDS ORDERED: DIPHENHYDRAMINE 50 MG/ML, 1ML IVPush ONE (16:00)
[2017-01-15] MEDS ORDERED: ACETAMINOPHEN 325 MG TABLET PO ONE (16:00)
[2017-01-15] MEDS: POTASSIUM CHLORIDE 40 MEQ in SODIUM CHLORIDE 0.9% 1,000 ML IV SCH (20:50)
[2017-01-16] VITALS (9 sets, daily range): BP systolic 115–154; BP diastolic 66–97
[2017-01-16] MEDS: VANCOMYCIN 50 MG/ML ORAL SUSP PO SCH ×5 (00:52→23:42)
[2017-01-16 05:12] LABS: BLOOD UREA NITROGEN 8 mg/dL (7-18)
[2017-01-16] MEDS: LACTOBACILLUS CHEW TABLET PO SCH ×4 (06:17→20:30)
[2017-01-16] MEDS: METRONIDAZOLE PMX 500MG/100ML 100 ML IV SCH ×3 (06:17→20:30)
[2017-01-16] MEDS: ENOXAPARIN 40 MG/0.4 ML SQ SCH (09:11)
[2017-01-16] MEDS: MAGNESIUM OXIDE 400 MG TABLET PO SCH (09:11)
[2017-01-16] MEDS ORDERED: MAGNESIUM SULFATE PMX 2GM/50ML 50 ML IV ONE (10:30)
[2017-01-16] MEDS: POTASSIUM CHLORIDE 40 MEQ in SODIUM CHLORIDE 0.9% 500 ML IV SCH ×2 (10:43→17:10)
[2017-01-16] MEDS: POTASSIUM CHLORIDE 40 MEQ in SODIUM CHLORIDE 0.9% 1,000 ML IV SCH (16:10)
[2017-01-16] MEDS: MEROPENEM 1 GM in SODIUM CHLORIDE 0.9% 50 ML IV SCH ×2 (16:10→23:42)
[2017-01-17 02:17] VITALS: BP 161/98
[2017-01-17] MEDS: METRONIDAZOLE PMX 500MG/100ML 100 ML IV SCH ×3 (04:39→20:48)
[2017-01-17 05:40] LABS: BLOOD UREA NITROGEN 7 mg/dL (7-18)
[2017-01-17] MEDS: LACTOBACILLUS CHEW TABLET PO SCH ×4 (06:10→20:47)
[2017-01-17] MEDS: VANCOMYCIN 50 MG/ML ORAL SUSP PO SCH ×3 (06:10→18:16)
[2017-01-17 07:38] VITALS: BP 157/94
[2017-01-17] MEDS: ENOXAPARIN 40 MG/0.4 ML SQ SCH (09:40)
[2017-01-17] MEDS: MAGNESIUM OXIDE 400 MG TABLET PO SCH (09:40)
[2017-01-17] MEDS: MEROPENEM 1 GM in SODIUM CHLORIDE 0.9% 50 ML IV SCH ×2 (09:40→18:16)
[2017-01-17] MEDS ORDERED: MAGNESIUM SULFATE PMX 2GM/50ML 50 ML IV ONE (11:30)
[2017-01-17] MEDS: POTASSIUM CHLORIDE 40 MEQ in SODIUM CHLORIDE 0.9% 1,000 ML IV SCH (11:49)
[2017-01-17 14:00] VITALS: BP 134/74
[2017-01-17 18:51] VITALS: BP 136/62
[2017-01-18] MEDS: VANCOMYCIN 50 MG/ML ORAL SUSP PO SCH ×4 (00:07→17:33)
[2017-01-18] MEDS: MEROPENEM 1 GM in SODIUM CHLORIDE 0.9% 50 ML IV SCH ×2 (00:07→08:39)
[2017-01-18] MEDS: POTASSIUM CHLORIDE 40 MEQ in SODIUM CHLORIDE 0.9% 1,000 ML IV SCH ×2 (00:08→13:36)
[2017-01-18] MEDS: METRONIDAZOLE PMX 500MG/100ML 100 ML IV SCH ×3 (05:00→21:38)
[2017-01-18] MEDS: LACTOBACILLUS CHEW TABLET PO SCH ×4 (05:00→21:38)
[2017-01-18 05:49] LABS: ASPARTATE AMINO TRANSFERASE 10 U/L (15-37); BLOOD UREA NITROGEN 8 mg/dL (7-18)
[2017-01-18 07:20] VITALS: BP 112/65
[2017-01-18] MEDS: ENOXAPARIN 40 MG/0.4 ML SQ SCH (08:39)
[2017-01-18] MEDS: MAGNESIUM OXIDE 400 MG TABLET PO SCH (08:39)
[2017-01-18] MEDS ORDERED: OMNIPAQUE 350 MG/ML, 100ML BOTTLE ONE (10:24)
[2017-01-18] MEDS ORDERED: PHARMACOKINETIC CONSULTATION MC ONE (11:30)
[2017-01-18] MEDS ORDERED: VANCOMYCIN PER PHARMACY MC PRN (11:30)
[2017-01-18] MEDS ORDERED: PHARMACOKINETIC MONITORING MC PRN (11:30)
[2017-01-18] MEDS: VANCOMYCIN 1,000 MG in SODIUM CHLORIDE 0.9% 100 ML IV SCH (12:19)
[2017-01-18] MEDS: AZTREONAM 1 GM in SODIUM CHLORIDE 0.9% 50 ML IV SCH ×2 (13:28→17:32)
[2017-01-18 13:50] VITALS: BP 125/63
[2017-01-18 21:46] VITALS: BP 120/76
[2017-01-19] MEDS: AZTREONAM 1 GM in SODIUM CHLORIDE 0.9% 50 ML IV SCH ×5 (00:24→23:46)
[2017-01-19] MEDS: ERGOCALCIFEROL 50,000 UNIT CAPSULE PO SCH (00:24)
[2017-01-19] MEDS: VANCOMYCIN 50 MG/ML ORAL SUSP PO SCH ×5 (00:24→23:47)
[2017-01-19 03:24] VITALS: BP 128/79
[2017-01-19] MEDS: METRONIDAZOLE PMX 500MG/100ML 100 ML IV SCH ×3 (03:27→20:30)
[2017-01-19] MEDS: POTASSIUM CHLORIDE 40 MEQ in SODIUM CHLORIDE 0.9% 1,000 ML IV SCH ×2 (03:27→20:30)
[2017-01-19] MEDS: LACTOBACILLUS CHEW TABLET PO SCH ×4 (05:38→20:30)
[2017-01-19 06:15] LABS: ASPARTATE AMINO TRANSFERASE 7 U/L (15-37); BLOOD UREA NITROGEN 10 mg/dL (7-18)
[2017-01-19 08:03] VITALS: BP 124/64
[2017-01-19] MEDS: ENOXAPARIN 40 MG/0.4 ML SQ SCH (08:23)
[2017-01-19] MEDS: MAGNESIUM OXIDE 400 MG TABLET PO SCH (08:23)
[2017-01-19] MEDS: VANCOMYCIN 1,000 MG in SODIUM CHLORIDE 0.9% 100 ML IV SCH (11:46)
[2017-01-19 12:46] VITALS: BP 140/69
[2017-01-19 20:36] VITALS: BP 121/72
[2017-01-20 03:46] VITALS: BP 138/64
[2017-01-20] MEDS: METRONIDAZOLE PMX 500MG/100ML 100 ML IV SCH ×2 (03:49→14:42)
[2017-01-20] MEDS: LACTOBACILLUS CHEW TABLET PO SCH ×3 (05:15→18:01)
[2017-01-20] MEDS: VANCOMYCIN 50 MG/ML ORAL SUSP PO SCH ×3 (05:15→18:15)
[2017-01-20] MEDS: AZTREONAM 1 GM in SODIUM CHLORIDE 0.9% 50 ML IV SCH ×3 (05:16→18:01)
[2017-01-20 06:02] LABS: BLOOD UREA NITROGEN 9 mg/dL (7-18)
[2017-01-20 08:00] VITALS: BP 126/62
[2017-01-20] MEDS: ENOXAPARIN 40 MG/0.4 ML SQ SCH (10:21)
[2017-01-20] MEDS: MAGNESIUM OXIDE 400 MG TABLET PO SCH (10:21)
[2017-01-20] MEDS: POTASSIUM CHLORIDE 40 MEQ in SODIUM CHLORIDE 0.9% 1,000 ML IV SCH (11:45)
[2017-01-20] MEDS: VANCOMYCIN 1,000 MG in SODIUM CHLORIDE 0.9% 100 ML IV SCH (11:45)
[2017-01-20 13:34] VITALS: BP 107/54
[2017-01-20 20:13] VITALS: BP 126/63
[2017-01-21] MEDS: LACTOBACILLUS CHEW TABLET PO SCH ×5 (00:09→20:22)
[2017-01-21] MEDS: AZTREONAM 1 GM in SODIUM CHLORIDE 0.9% 50 ML IV SCH ×4 (00:09→20:21)
[2017-01-21] MEDS: METRONIDAZOLE PMX 500MG/100ML 100 ML IV SCH ×3 (00:09→15:43)
[2017-01-21] MEDS: VANCOMYCIN 50 MG/ML ORAL SUSP PO SCH ×4 (00:12→20:22)
[2017-01-21 02:10] VITALS: BP 129/67
[2017-01-21] MEDS: POTASSIUM CHLORIDE 40 MEQ in SODIUM CHLORIDE 0.9% 1,000 ML IV SCH (02:53)
[2017-01-21 05:49] LABS: BLOOD UREA NITROGEN 8 mg/dL (7-18)
[2017-01-21 07:49] VITALS: BP 119/66
[2017-01-21] MEDS: ENOXAPARIN 40 MG/0.4 ML SQ SCH (08:40)
[2017-01-21] MEDS: MAGNESIUM OXIDE 400 MG TABLET PO SCH (09:12)
[2017-01-21] MEDS ORDERED: POTASSIUM PHOSPHATE 44 MEQ in SODIUM CHLORIDE 0.9% 500 ML IV ONE (11:30)
[2017-01-21] MEDS ORDERED: MAGNESIUM SULFATE PMX 4GM/100M 100 ML IV ONE (12:00)
[2017-01-21] MEDS: MEGESTROL ORAL.SUSP 40 MG/ML PO SCH (12:30)
[2017-01-21] MEDS ORDERED: VANCOMYCIN 1,000 MG in SODIUM CHLORIDE 0.9% 100 ML IV SCH (13:30)
[2017-01-21] MEDS ORDERED: VANCOMYCIN 1,000 MG in SODIUM CHLORIDE 0.9% 100 ML IV ONE (13:30)
[2017-01-21 15:02] VITALS: BP 124/60
[2017-01-21] MEDS ORDERED: POTASSIUM CHLORIDE 40 MEQ in SODIUM CHLORIDE 0.9% 1,000 ML IV SCH (17:00)
[2017-01-21 21:29] VITALS: BP 118/61
[2017-01-22] MEDS: METRONIDAZOLE PMX 500MG/100ML 100 ML IV SCH ×4 (00:02→23:58)
[2017-01-22 02:10] VITALS: BP 124/69
[2017-01-22] MEDS: VANCOMYCIN 50 MG/ML ORAL SUSP PO SCH ×4 (02:13→20:58)
[2017-01-22] MEDS: VANCOMYCIN PMX 1GM/200ML 200 ML IV SCH ×2 (02:13→20:57)
[2017-01-22] MEDS: AZTREONAM 1 GM in SODIUM CHLORIDE 0.9% 50 ML IV SCH ×4 (03:33→20:58)
[2017-01-22] MEDS: LACTOBACILLUS CHEW TABLET PO SCH ×4 (05:13→20:58)
[2017-01-22 05:52] LABS: BLOOD UREA NITROGEN 7 mg/dL (7-18)
[2017-01-22 08:34] VITALS: BP 138/74
[2017-01-22] MEDS: MEGESTROL ORAL.SUSP 40 MG/ML PO SCH (08:39)
[2017-01-22] MEDS: ENOXAPARIN 40 MG/0.4 ML SQ SCH (08:40)
[2017-01-22] MEDS: MAGNESIUM OXIDE 400 MG TABLET PO SCH (08:40)
[2017-01-22 14:16] VITALS: BP 117/61
[2017-01-22 19:56] VITALS: BP 110/59
[2017-01-23 01:58] VITALS: BP 134/75
[2017-01-23] MEDS: AZTREONAM 1 GM in SODIUM CHLORIDE 0.9% 50 ML IV SCH ×4 (03:22→20:32)
[2017-01-23] MEDS: VANCOMYCIN 50 MG/ML ORAL SUSP PO SCH ×4 (03:22→20:32)
[2017-01-23] MEDS: LACTOBACILLUS CHEW TABLET PO SCH ×4 (05:36→20:32)
[2017-01-23 05:56] LABS: BLOOD UREA NITROGEN 7 mg/dL (7-18)
[2017-01-23 07:32] VITALS: BP 118/67
[2017-01-23] MEDS ORDERED: MAGNESIUM SULFATE PMX 4GM/100M 100 ML IV ONE (09:00)
[2017-01-23] MEDS: ENOXAPARIN 40 MG/0.4 ML SQ SCH (09:00)
[2017-01-23] MEDS: MAGNESIUM OXIDE 400 MG TABLET PO SCH (09:02)
[2017-01-23] MEDS: METRONIDAZOLE PMX 500MG/100ML 100 ML IV SCH ×3 (09:04→23:16)
[2017-01-23] MEDS: MEGESTROL ORAL.SUSP 40 MG/ML PO SCH (09:10)
[2017-01-23] MEDS: VANCOMYCIN PMX 1GM/200ML 200 ML IV SCH (14:54)
[2017-01-23 14:55] VITALS: BP 118/67
[2017-01-23 19:59] VITALS: BP 104/52
[2017-01-24 01:20] VITALS: BP 121/53
[2017-01-24] MEDS: AZTREONAM 1 GM in SODIUM CHLORIDE 0.9% 50 ML IV SCH ×4 (02:08→21:09)
[2017-01-24] MEDS: VANCOMYCIN 50 MG/ML ORAL SUSP PO SCH ×4 (02:08→20:18)
[2017-01-24] MEDS: OXYcodone/APAP 5/325MG TABLET PO PRN ×4 (02:15→20:18)
[2017-01-24 05:24] LABS: BLOOD UREA NITROGEN 8 mg/dL (7-18)
[2017-01-24] MEDS: LACTOBACILLUS CHEW TABLET PO SCH ×4 (05:28→20:18)
[2017-01-24] MEDS: VANCOMYCIN PMX 1GM/200ML 200 ML IV SCH (08:14)
[2017-01-24 08:20] VITALS: BP 118/60
[2017-01-24] MEDS: MAGNESIUM OXIDE 400 MG TABLET PO SCH (08:20)
[2017-01-24] MEDS: ENOXAPARIN 40 MG/0.4 ML SQ SCH (08:20)
[2017-01-24] MEDS: METRONIDAZOLE PMX 500MG/100ML 100 ML IV SCH ×3 (10:11→23:17)
[2017-01-24] MEDS: MEGESTROL ACETATE 400 MG/10 ML ML PO SCH (11:10)
[2017-01-24 14:20] VITALS: BP 124/71
[2017-01-24 19:28] VITALS: BP 118/72
[2017-01-25 01:16] VITALS: BP 131/73
[2017-01-25] MEDS: VANCOMYCIN 50 MG/ML ORAL SUSP PO SCH ×4 (01:27→20:23)
[2017-01-25] MEDS: OXYcodone/APAP 5/325MG TABLET PO PRN ×5 (01:27→20:23)
[2017-01-25] MEDS: AZTREONAM 1 GM in SODIUM CHLORIDE 0.9% 50 ML IV SCH ×4 (01:27→20:23)
[2017-01-25] MEDS: VANCOMYCIN PMX 1GM/200ML 200 ML IV SCH ×3 (02:01→20:31)
[2017-01-25] MEDS: LACTOBACILLUS CHEW TABLET PO SCH ×4 (06:12→20:23)
[2017-01-25 07:32] VITALS: BP 124/75
[2017-01-25] MEDS: MAGNESIUM OXIDE 400 MG TABLET PO SCH (09:55)
[2017-01-25] MEDS: METRONIDAZOLE PMX 500MG/100ML 100 ML IV SCH ×3 (09:55→23:35)
[2017-01-25] MEDS: ENOXAPARIN 40 MG/0.4 ML SQ SCH (09:56)
[2017-01-25] MEDS: MEGESTROL ACETATE 400 MG/10 ML ML PO SCH (11:27)
[2017-01-25 13:59] VITALS: BP 110/68
[2017-01-25 19:12] VITALS: BP 114/66
[2017-01-25] MEDS: ERGOCALCIFEROL 50,000 UNIT CAPSULE PO SCH (23:35)
[2017-01-26 00:43] VITALS: BP 126/75
[2017-01-26] MEDS: OXYcodone/APAP 5/325MG TABLET PO PRN ×5 (00:51→16:44)
[2017-01-26] MEDS: VANCOMYCIN 50 MG/ML ORAL SUSP PO SCH ×3 (02:02→13:10)
[2017-01-26] MEDS: AZTREONAM 1 GM in SODIUM CHLORIDE 0.9% 50 ML IV SCH ×3 (02:02→14:19)
[2017-01-26] MEDS: LACTOBACILLUS CHEW TABLET PO SCH ×3 (04:54→16:32)
[2017-01-26 07:40] VITALS: BP 129/73
[2017-01-26] MEDS: METRONIDAZOLE PMX 500MG/100ML 100 ML IV SCH ×2 (07:50→16:32)
[2017-01-26] MEDS: MAGNESIUM OXIDE 400 MG TABLET PO SCH (07:50)
[2017-01-26] MEDS: MEGESTROL ACETATE 400 MG/10 ML ML PO SCH (07:51)
[2017-01-26] MEDS ORDERED: ENOXAPARIN 40 MG/0.4 ML SQ SCH (09:00)
[2017-01-26 14:08] VITALS: BP 121/72
[2017-01-26] MEDS: VANCOMYCIN PMX 1GM/200ML 200 ML IV SCH (14:19)
[2017-01-26] MEDS ORDERED: [UNRECOGNIZED DRUG - CODE] IV (18:06)
[2017-01-26] MEDS ORDERED: ENOX40SY4 SQ (18:06)
[2017-01-26] MEDS ORDERED: MAGN400T7 PO (18:07)
[2017-01-26] MEDS ORDERED: ERGO500017 PO (18:07)
[2017-01-26] MEDS ORDERED: LACT1CAP24 PO (18:07)
[2017-01-26] MEDS ORDERED: MEGE40TA PO (18:08)
[2017-01-26] MEDS ORDERED: METR500P3 IV (18:08)
[2017-01-26] MEDS ORDERED: VANC1PLA10 IV (18:10)
[2017-01-26] MEDS ORDERED: VANC250C12 PO (18:10)
[2017-01-26] MEDS ORDERED: DOCU100T3 PO (18:12)
[2017-01-26] MEDS ORDERED: LABE5VIA13 IV (18:13)
[2017-01-26] MEDS ORDERED: ONDA4TAB13 SL (18:14)
[2017-01-26] MEDS ORDERED: OXYC1TAB7 PO (18:15)
[2017-01-26] MEDS ORDERED: TEMA15CA6 PO (18:15)
[2017-01-26] MEDS ORDERED: HYDR20VI3 IVPush (18:16)
[2017-01-26] MEDS ORDERED: MORP-52 PO (18:20)
== END 2017-01-26 19:10 | DRG 853 ==
LOC: ED 19:01 → 3NW 20:06 → 3NE 01-07 07:29 → 4WST 01-16 00:09 → 3NW 01-24 18:30
PROVIDERS: ADMIT Internal Medicine; ATTEND Family Medicine
PROC: 0T9430Z Drainage of Left Kidney Pelvis with Drainage Device, Percutaneous Approach (ICD-10-PCS; 2017-01-09)
PROC: 0T9330Z Drainage of Right Kidney Pelvis with Drainage Device, Percutaneous Approach (ICD-10-PCS; 2017-01-09)
PROC: 0UBC7ZX Excision of Cervix, Via Natural or Artificial Opening, Diagnostic (ICD-10-PCS; 2017-01-10)
PROC: 0DBP7ZX Excision of Rectum, Via Natural or Artificial Opening, Diagnostic (ICD-10-PCS; 2017-01-10)
PROC: 0WJP4ZZ Inspection of Gastrointestinal Tract, Percutaneous Endoscopic Approach (ICD-10-PCS; 2017-01-12)
PROC: 3E1M38Z Irrigation of Peritoneal Cavity using Irrigating Substance, Percutaneous Approach (ICD-10-PCS; 2017-01-12)
PROC: 0DQH0ZZ Repair Cecum, Open Approach (ICD-10-PCS; 2017-01-12)
PROC: 0D1M0Z4 Bypass Descending Colon to Cutaneous, Open Approach (ICD-10-PCS; 2017-01-12)
PROC: 0DTN0ZZ Resection of Sigmoid Colon, Open Approach (ICD-10-PCS; principal; 2017-01-12 18:00)
PROC: 30233N1 Transfusion of Nonautologous Red Blood Cells into Peripheral Vein, Percutaneous Approach (ICD-10-PCS; 2017-01-15)
PROC: 30233N1 Transfusion of Nonautologous Red Blood Cells into Peripheral Vein, Percutaneous Approach (ICD-10-PCS; 2017-01-16)
DX: A41.4 Sepsis due to anaerobes (principal); E43 Unspecified severe protein-calorie malnutrition; K35.2 Acute appendicitis with generalized peritonitis; N39.0 Urinary tract infection, site not specified; E87.1 Hypo-osmolality and hyponatremia; E87.2 Acidosis; N17.9 Acute kidney failure, unspecified; A04.7 Enterocolitis due to Clostridium difficile; C20 Malignant neoplasm of rectum; J98.11 Atelectasis; J90 Pleural effusion, not elsewhere classified; R64 Cachexia; N13.1 Hydronephrosis with ureteral stricture, not elsewhere classified; N18.9 Chronic kidney disease, unspecified; D64.9 Anemia, unspecified; C53.9 Malignant neoplasm of cervix uteri, unspecified; D63.8 Anemia in other chronic diseases classified elsewhere; D75.89 Other specified diseases of blood and blood-forming organs; E83.39 Other disorders of phosphorus metabolism; E83.42 Hypomagnesemia; E87.5 Hyperkalemia; E87.6 Hypokalemia; G89.3 Neoplasm related pain (acute) (chronic); I12.9 Hypertensive chronic kidney disease with stage 1 through stage 4 chronic kidney disease, or unspecified chronic kidney disease; K62.4 Stenosis of anus and rectum; K66.8 Other specified disorders of peritoneum; K80.20 Calculus of gallbladder without cholecystitis without obstruction; M41.9 Scoliosis, unspecified; R62.7 Adult failure to thrive; R73.9 Hyperglycemia, unspecified; R65.20 Severe sepsis without septic shock; Z80.0 Family history of malignant neoplasm of digestive organs; Z80.3 Family history of malignant neoplasm of breast
CPT/HCPCS: 36415; 50432; 71010; 71260; 72195; 74000; 74177; 74181; 76770; 76937; 80048; 80053; 80202; 81001; 82040; 83036; 83605; 83735; 84100; 84132; 84145; 84439; 84443; 85014; 85018; 85025; 85610; 85730; 86850; 86900; 86923; 87040; 87046; 87086; 87324; 87899; 88304; 88305; 93005; 93306; 96361; 96365; 96375; C1894; J0696; J1170; J1644; J1650; J2185; J2250; J2270; J2405; J2704; J2710; J3010; J3370; J3480; J3490; Q0162; Q9966; Q9967; C1729; C1765; C1769; J0360; J1200; J2310; J3475; J7030; J7040; P9016; S0028; S0074